=== PATIENT | female | born 1940 | race Caucasian/White ===

== ENCOUNTER 2019-09-28 13:21 | Outpatient (REF) | payer MEDICARE, BC, SELFPAY ==
[2019-09-28 19:33] LABS: HCT 39.3 % (36.0-46.0); HGB 12.7 g/dL (12.0-15.5); Mean Corp. HGB Concentration 32.3 g/dL (32.0-36.0); Mean Corpuscular Hemoglobin 28.7 pg (27.0-33.0); Mean Corpuscular Volume 88.7 fL (80-95); Mean Platelet Volume 12.2 fL (8.0-11.0); Platelet Count 186 x1000/uL (130-400); RBC 4.43 m/cumm (4.00-5.20); RBC Distribution Width 13.6 % (11.7-14.6); White Blood Cell Count 4.13 k/cumm (4.4-10.8)
[2019-09-28 19:53] LABS: Anion Gap 5.3 mmol/L (3-11); BUN 12 mg/dL (7-18); CO2 31.7 mmol/L (21.0-32.0); CREATININE 0.69 mg/dL (0.55-1.02); Chloride 105 mmol/L (98-107); Ferritin 74 ng/mL (8-252); Glucose 81 mg/dL (74-106); Potassium 4.3 mmol/L (3.5-5.1); Sodium 142 mmol/L (136-145)
== END 2019-09-28 13:41 ==
LOC: NCHCN 13:21
PROVIDERS: PCP Physician Assistant Medical; Visit Provider Internal Medicine
DX: I10 Essential (primary) hypertension (principal); R05 Cough; K58.9 Irritable bowel syndrome, unspecified
CPT/HCPCS: 80048; 85027; 82728

== ENCOUNTER 2020-08-23 16:46 | Outpatient (REF) | payer MEDICARE, BC, SELFPAY ==
[2020-08-23 19:36] LABS: ALT 24 U/L (14-59); Anion Gap 7.6 mmol/L (3-11); BUN 25 mg/dL (7-18); CO2 30.4 mmol/L (21.0-32.0); CREATININE 1.03 mg/dL (0.55-1.02); Calcium 8.7 mg/dL (8.5-10.1); Chloride 102 mmol/L (98-107); Estimated GFR 51.69 (mL/min/1.73m2); Glucose 88 mg/dL (74-106); LDL CHOLESTEROL 154 mg/dL (<100); Sodium 140 mmol/L (136-145)
== END 2020-08-23 17:06 ==
LOC: NCHCN 16:46
PROVIDERS: PCP Internal Medicine; Visit Provider Internal Medicine
DX: I10 Essential (primary) hypertension (principal); M81.0 Age-related osteoporosis without current pathological fracture
CPT/HCPCS: 80048; 83721; 84460

== ENCOUNTER 2020-10-07 18:35 | Outpatient (REF) | payer MEDICARE, BC, SELFPAY ==
[2020-10-07 20:06] LABS: Abs Immature Grans 0.01 10^3/uL (0.0-0.06); Absolute Basophil Count 0.04 10^3/uL (0.0-0.2); Absolute Eosinophil Count 0.11 10^3/uL (0.0-0.7); Absolute Lymphocyte Count 1.61 10^3/uL (1.2-3.4); Absolute Monocyte Count 0.48 10^3/uL (0.1-0.8); Absolute Neutrophil Count 2.65 10^3/uL (1.2-6.7); Basophils % 0.8; Eosinophils % 2.2; HCT 37.9 % (36.0-46.0); HGB 12.3 g/dL (11.2-15.7); Immature Grans % 0.2; Lymphocytes % 32.9; MCH 28.8 pg (27.0-33.0); MCHC 32.5 % (32.0-36.0); MCV 88.8 fL (80-95); MPV 12.5 fL (8.0-11.0); Monocytes % 9.8; Neutrophils % 54.1; Nucleated RBC 0 %; Platelet Count 201 10^3/uL (130-400); RBC 4.27 10^6/uL (3.93-5.22); RDW-SD 42.4 fL
== END 2020-10-07 18:55 ==
LOC: NCHCN 18:35
PROVIDERS: PCP Internal Medicine; Visit Provider Internal Medicine
DX: I10 Essential (primary) hypertension (principal); R23.3 Spontaneous ecchymoses; L08.1 Erythrasma
CPT/HCPCS: 85025

== ENCOUNTER 2021-04-03 15:52 | Outpatient (REF) | payer MEDICARE, SELFPAY ==
[2021-04-03 18:40] LABS: Abs Immature Grans 0.02 10^3/uL (0.0-0.06); Absolute Basophil Count 0.03 10^3/uL (0.0-0.2); Absolute Eosinophil Count 0.04 10^3/uL (0.0-0.7); Absolute Lymphocyte Count 1.59 10^3/uL (1.2-3.4); Absolute Monocyte Count 0.46 10^3/uL (0.1-0.8); Absolute Neutrophil Count 3.68 10^3/uL (1.2-6.7); Basophils % 0.5; Eosinophils % 0.7; HCT 40.3 % (36.0-46.0); HGB 12.9 g/dL (11.2-15.7); Immature Grans % 0.3; Lymphocytes % 27.3; MCH 28.7 pg (27.0-33.0); MCV 89.8 fL (80-95); MPV 12.5 fL (8.0-11.0); Monocytes % 7.9; Neutrophils % 63.3; Nucleated RBC 0 %; Platelet Count 193 10^3/uL (130-400); RBC 4.49 10^6/uL (3.93-5.22); RDW 13.2 % (11.7-14.6); RDW-SD 43.2 fL; WBC 5.82 10^3/uL (4.4-10.8)
[2021-04-03 18:58] LABS: ALT 23 U/L (14-59); AST 23 U/L (15-37); Albumin 3.9 g/dL (3.4-5.0); Alkaline Phosphatase 68 U/L (46-116); Anion Gap 7.9 mmol/L (3-11); BUN 24 mg/dL (7-18); Bilirubin, Total 0.8 mg/dL (0.2-1.0); CO2 30.1 mmol/L (21.0-32.0); CREATININE 0.9 mg/dL (0.55-1.02); Calcium 9.4 mg/dL (8.5-10.1); Chloride 104 mmol/L (98-107); Glucose 85 mg/dL (74-106); Potassium 4.2 mmol/L (3.5-5.1); Sodium 142 mmol/L (136-145); Total Protein 6.6 g/dL (6.4-8.2)
== END 2021-04-03 15:53 | disposition home or self-care (01) ==
LOC: NCHCN 15:52
PROVIDERS: Visit Provider Nurse Practitioner Family
DX: R53.83 Other fatigue (principal)
CPT/HCPCS: 80053; 85025

== ENCOUNTER 2021-11-12 18:14 | Outpatient (REF) | payer MEDICARE, BC, SELFPAY ==
[2021-11-12 21:14] LABS: TSH 2.81 uIU/mL (0.36-3.74)
[2021-11-12 21:35] LABS: T4 10.7 ug/mL (4.7-13.3)
== END 2021-11-12 18:15 | disposition home or self-care (01) ==
LOC: NCHCN 18:14
PROVIDERS: Visit Provider Internal Medicine
DX: I10 Essential (primary) hypertension (principal)
CPT/HCPCS: 84436; 84443

== ENCOUNTER → 2021-12-25 01:22 | Outpatient (CLI) | payer MEDICARE, BC, SELFPAY | PROVIDERS: Visit Provider Nurse Practitioner Family ==

== ENCOUNTER 2022-06-11 20:28 | Outpatient (REF) | payer MEDICARE, BC, SELFPAY ==
[2022-06-11 19:39] LABS: BUN 22 mg/dL (7-18); CREATININE 0.8 mg/dL (0.55-1.02); Calculated LDL 132 mg/dL (<100); Chloride 102 mmol/L (98-107); Cholesterol 217 mg/dL (<200); Estimated GFR 73.98 (mL/min/1.73m2); Glucose 88 mg/dL (74-106); HDL Cholesterol 71 mg/dL (40-60); Potassium 3.8 mmol/L (3.5-5.1); Sodium 139 mmol/L (136-145); Triglyceride 71 mg/dL (<150)
[2022-06-11 19:44] LABS: HCT 38.3 % (36.0-46.0); HGB 12.8 g/dL (11.2-15.7); MCH 29.2 pg (27.0-33.0); MCHC 33.4 % (32.0-36.0); MCV 87 fL (80-95); MPV 12.9 fL (8.0-11.0); Platelet Count 200 10^3/uL (130-400); RBC 4.38 10^6/uL (3.93-5.22); RDW 13.5 % (11.7-14.6); RDW-SD 43.5 fL; WBC 4.18 10^3/uL (4.4-10.8)
== END 2022-06-11 20:29 | disposition home or self-care (01) ==
LOC: NCHCN 20:28
PROVIDERS: Visit Provider Internal Medicine
DX: I10 Essential (primary) hypertension (principal); M54.50 Low back pain, unspecified; I87.2 Venous insufficiency (chronic) (peripheral)
CPT/HCPCS: 80048; 80061; 85027

== ENCOUNTER 2023-02-22 18:29 | Outpatient (REF) | payer MEDICARE, BC, SELFPAY ==
[2023-02-22 19:59] LABS: Anion Gap 8.8 mmol/L (3-11); BUN 22 mg/dL (7-18); CO2 31.2 mmol/L (21.0-32.0); CREATININE 1.2 mg/dL (0.55-1.02); Calcium 9.7 mg/dL (8.5-10.1); Chloride 104 mmol/L (98-107); Estimated GFR 45.48 (mL/min/1.73m2); Glucose 100 mg/dL (74-106); Magnesium 2.1 mg/dL (1.8-2.4); PHOSPHORUS 4.2 mg/dL (2.6-4.7); Potassium 4.3 mmol/L (3.5-5.1); Sodium 144 mmol/L (136-145)
== END 2023-02-22 18:30 | disposition home or self-care (01) ==
LOC: NCHCN 18:29
PROVIDERS: Visit Provider Internal Medicine
DX: I10 Essential (primary) hypertension (principal); M81.0 Age-related osteoporosis without current pathological fracture; R79.89 Other specified abnormal findings of blood chemistry
CPT/HCPCS: 80069; 83735

== ENCOUNTER 2023-12-16 18:15 | Outpatient (REF) | payer MEDICARE, BC, SELFPAY ==
[2023-12-16 18:57] LABS: HCT 36.7 % (36.0-46.0); HGB 12.2 g/dL (11.2-15.7); MCHC 33.2 % (32.0-36.0); MCV 87 fL (80-95); MPV 12.3 fL (8.0-11.0); Platelet Count 238 10^3/uL (130-400); RBC 4.21 10^6/uL (3.93-5.22); RDW 13.7 % (11.7-14.6); RDW-SD 43.8 fL; WBC 4.66 10^3/uL (4.4-10.8)
[2023-12-16 19:12] LABS: D-Dimer 1098 ng/mlFEU (<500)
[2023-12-16 19:13] LABS: Anion Gap 9.1 mmol/L (3-11); BUN 26 mg/dL (7-18); CO2 29.9 mmol/L (21.0-32.0); CREATININE 1.1 mg/dL (0.55-1.02); Calcium 9.1 mg/dL (8.5-10.1); Chloride 102 mmol/L (98-107); Estimated GFR 50.17 (mL/min/1.73m2); Glucose 95 mg/dL (74-106); Potassium 3.9 mmol/L (3.5-5.1); Sodium 141 mmol/L (136-145)
[2023-12-17 17:39] LABS: CRP, High Sensitivity 3.02 mg/L (See Note)
== END 2023-12-16 18:16 | disposition home or self-care (01) ==
LOC: NCHCN 18:15
PROVIDERS: Visit Provider Internal Medicine
DX: M79.661 Pain in right lower leg (principal)
CPT/HCPCS: 80048; 85027; 86141; 85379

== ENCOUNTER 2025-01-15 15:07 | Outpatient (REF) | payer MEDICARE, BC, SELFPAY ==
[2025-01-15 18:42] LABS: HGB 12.1 g/dL (11.2-15.7); MCH 28.8 pg (27.0-33.0); MCHC 32.7 % (32.0-36.0); MCV 88 fL (80-95); MPV 12.3 fL (8.0-11.0); Platelet Count 195 10^3/uL (130-400); RDW 13.2 % (11.7-14.6); RDW-SD 42.5 fL; WBC 4.74 10^3/uL (4.4-10.8)
[2025-01-15 19:08] LABS: Anion Gap 2.9 mmol/L (3-11); BUN 44 mg/dL (7-18); CO2 31.1 mmol/L (21.0-32.0); CREATININE 1.1 mg/dL (0.55-1.02); Calcium 9.7 mg/dL (8.5-10.1); Chloride 105 mmol/L (98-107); Estimated GFR 49.86 (mL/min/1.73m2); Glucose 99 mg/dL (74-106); Potassium 4.8 mmol/L (3.5-5.1); Sodium 139 mmol/L (136-145); TSH 3.35 uIU/mL (0.36-3.74)
[2025-01-16 21:10] LABS: Calculated LDL 144 mg/dL (<100); Cholesterol 242 mg/dL (<200); HDL Cholesterol 86 mg/dL (>or=50); Triglyceride 62 mg/dL (<150)
== END 2025-01-15 15:08 | disposition home or self-care (01) ==
LOC: NCHCN 15:07
PROVIDERS: PCP Internal Medicine; Visit Provider Internal Medicine
DX: I10 Essential (primary) hypertension (principal); R53.83 Other fatigue
CPT/HCPCS: 80048; 80061; 85027; 84443